=== PATIENT | male | born 1975 | race African-American/Black ===

== ENCOUNTER 2022-07-31 10:19 | Inpatient (IN) | payer OTHER ==
[2022-07-31 10:50] VITALS: BMI 23.1
[2022-07-31] MEDS ORDERED: NALOXONE HCL 0.4 MG/ML VIAL IM PRN (11:33)
[2022-07-31] MEDS ORDERED: MAGNESIUM HYDROX 2400MG/30ML ORAL SUSPENSION 30 ML CUP PO PRN (11:33)
[2022-07-31] MEDS ORDERED: ACETAMINOPHEN 325 MG TABLET (FP) PO PRN (11:33)
[2022-07-31] MEDS ORDERED: LOPERAMIDE HCL 2 MG CAPSULE PO PRN (11:33)
[2022-07-31] MEDS ORDERED: MAG HYDROX/AL HYDROX/SIMETH 30 ML UNIT-DOSE CUP PO PRN (11:33)
[2022-07-31] MEDS ORDERED: guaiFENesin 600 MG TABLET.ER (FP) PO PRN (11:33)
[2022-07-31] MEDS ORDERED: BENZONATATE 200 MG CAPSULE PO PRN (11:33)
[2022-07-31] MEDS ORDERED: POLYETHYLENE GLYCOL (HEALTHYLAX) 3350 17 GM PACKET PO PRN (11:33)
[2022-07-31] MEDS ORDERED: BISMUTH SUBSALICYLATE 262 MG/15 ML BTL PO PRN (11:33)
[2022-07-31] MEDS ORDERED: NALOXONE HCL (KLOXXADO) 8 MG SPRAY NS PRN (11:33)
[2022-07-31] MEDS ORDERED: BENZOCAINE/MENTHOL (CHLORASEPTIC ) LOZENGE MM PRN (11:33)
[2022-07-31] MEDS ORDERED: IBUPROFEN 600 MG TABLET (FP) PO PRN (11:33)
[2022-07-31] MEDS ORDERED: ONDANSETRON *ODT* 4 MG TABLET SL PRN (11:33)
[2022-07-31] MEDS ORDERED: IBUPROFEN 400 MG TABLET (FP) PO PRN (11:33)
[2022-07-31] MEDS ORDERED: DICYCLOMINE HCL 10 MG CAPSULE PO PRN (11:33)
[2022-07-31] MEDS ORDERED: NICOTINE POLACRILEX 2 MG GUM BUC PRN (11:33)
[2022-07-31] MEDS ORDERED: P-EPHED 60MG/TRIPROLIDI 2.5MG TABLET PO PRN (11:33)
[2022-07-31] MEDS: PRENATAL VITAMINS W/ FOLIC ACID TABLET (FP) PO SCH (12:20)
[2022-07-31] MEDS ORDERED: PRENATAL VITAMINS W/ FOLIC ACID TABLET (FP) PO ONE (12:25)
[2022-07-31] MEDS: THIAMINE HCL 100 MG TABLET (FP) PO SCH (22:15)
[2022-08-01 09:24] LABS: HEMATOCRIT 36.7 % (35.4-49); HEMOGLOBIN 12.2 GM/dL (11.7-16.9); MCH 30.6 pg (25.7-33.7); MCHC 33.4 g/dl (32.0-35.9); MEAN CELL VOLUME 91.6 fl (80-96); MEAN PLT VOLUME 10.5 fl (7.5-11.1); PLATELET COUNT 227 10^3/uL (134-434); RDW 13.8 % (11.9-15.9); WHITE BLOOD COUNT 3.9 K/mm3 (4.0-10.0)
[2022-08-01] MEDS ORDERED: chlordiazePOXIDE HCL 25 MG CAPSULE PO PRN (09:38)
[2022-08-01] MEDS: PRENATAL VITAMINS W/ FOLIC ACID TABLET (FP) PO SCH (10:13)
[2022-08-01] MEDS: chlordiazePOXIDE HCL 25 MG CAPSULE PO SCH ×3 (10:13→22:11)
[2022-08-01 10:34] LABS: POTASSIUM 3.9 mmol/L (3.5-5.1)
[2022-08-01 10:39] LABS: CALCIUM 9.5 mg/dL (8.5-10.1)
[2022-08-01 10:40] LABS: ALBUMIN 3.7 g/dl (3.4-5.0)
[2022-08-01 10:43] LABS: BILIRUBIN,TOTAL 1.2 mg/dL (0.2-1); BLOOD UREA NITROGEN 17.3 mg/dL (7-18)
[2022-08-01 10:44] LABS: TOT PROT 7.6 g/dl (6.4-8.2)
[2022-08-01 10:46] LABS: CREATININE 0.7 mg/dL (0.55-1.3)
[2022-08-01] MEDS: MELATONIN 5 MG TABLETS PO PRN (22:08)
[2022-08-01] MEDS: hydrOXYzine PAMOATE 25 MG CAPSULE (FP) PO PRN (22:08)
[2022-08-01] MEDS: METHOCARBAMOL 500 MG TABLET PO PRN (22:09)
[2022-08-01] MEDS: THIAMINE HCL 100 MG TABLET (FP) PO SCH (22:09)
[2022-08-02] MEDS: chlordiazePOXIDE HCL 25 MG CAPSULE PO SCH ×4 (05:47→22:21)
[2022-08-02] MEDS: PRENATAL VITAMINS W/ FOLIC ACID TABLET (FP) PO SCH (10:35)
[2022-08-02] MEDS: METHOCARBAMOL 500 MG TABLET PO PRN (22:20)
[2022-08-02] MEDS: MELATONIN 5 MG TABLETS PO PRN (22:20)
[2022-08-02] MEDS: THIAMINE HCL 100 MG TABLET (FP) PO SCH (22:21)
[2022-08-02] MEDS: hydrOXYzine PAMOATE 25 MG CAPSULE (FP) PO PRN (22:21)
[2022-08-03] MEDS: chlordiazePOXIDE HCL 25 MG CAPSULE PO SCH ×4 (05:24→23:13)
[2022-08-03] MEDS: PRENATAL VITAMINS W/ FOLIC ACID TABLET (FP) PO SCH (10:08)
[2022-08-03] MEDS: THIAMINE HCL 100 MG TABLET (FP) PO SCH (23:13)
[2022-08-04] MEDS ORDERED: chlordiazePOXIDE HCL 10 MG CAPSULE PO PRN
[2022-08-04] MEDS: chlordiazePOXIDE HCL 10 MG CAPSULE PO SCH ×4 (05:21→22:12)
[2022-08-04] MEDS: PRENATAL VITAMINS W/ FOLIC ACID TABLET (FP) PO SCH (10:13)
[2022-08-04] MEDS: THIAMINE HCL 100 MG TABLET (FP) PO SCH (22:12)
[2022-08-04] MEDS: MELATONIN 5 MG TABLETS PO PRN (22:12)
[2022-08-04] MEDS: METHOCARBAMOL 500 MG TABLET PO PRN (22:14)
[2022-08-05] MEDS: METHOCARBAMOL 500 MG TABLET PO PRN ×2 (06:00→22:17)
[2022-08-05] MEDS: chlordiazePOXIDE HCL 10 MG CAPSULE PO SCH ×2 (06:00→17:47)
[2022-08-05] MEDS: PRENATAL VITAMINS W/ FOLIC ACID TABLET (FP) PO SCH (10:01)
[2022-08-05 18:41] VITALS: RESP 18
[2022-08-05] MEDS: hydrOXYzine PAMOATE 25 MG CAPSULE (FP) PO PRN (22:17)
[2022-08-05] MEDS: MELATONIN 5 MG TABLETS PO PRN (22:17)
[2022-08-05] MEDS: THIAMINE HCL 100 MG TABLET (FP) PO SCH (22:18)
[2022-08-06] MEDS ORDERED: chlordiazePOXIDE HCL 10 MG CAPSULE PO ONE (05:00)
[2022-08-06] MEDS: METHOCARBAMOL 500 MG TABLET PO PRN (05:30)
[2022-08-06 09:05] VITALS: BP 124/83; PULSE 84; TEMP 97.3
== END 2022-08-06 09:02 | disposition other institution (70) | DRG 775 ==
LOC: YASAS 10:19 → Y3N 12:04
PROVIDERS: ADMIT Allergy & Immunology; ATTEND Surgery
PROC: HZ2ZZZZ Detoxification Services for Substance Abuse Treatment (ICD-10-PCS; principal; 2022-07-31)
DX: F10.230 Alcohol dependence with withdrawal, uncomplicated (principal); F12.20 Cannabis dependence, uncomplicated; F17.210 Nicotine dependence, cigarettes, uncomplicated; Z28.310 Unvaccinated for COVID-19; Z28.9 Immunization not carried out for unspecified reason
CPT/HCPCS: 36415; 80053; 85027; 86780; 87635